=== PATIENT | female | born 1995 | race American Indian/Alaskan Native ===

== ENCOUNTER 2017-09-27 14:07 | Emergency (ER) | payer BC, MEDICAID ==
[2017-09-27 14:30] VITALS: BMI 32.8
--- NOTE | 2017-09-27 15:14 | US ---
PROCEDURE: OB Pelvic Ultrasound HISTORY: decrease mov COMPARISON: None available. FINDINGS: UTERUS: Single Live intrauterine gestation. BPD: 6.1 centimeter compatible with estimated gestational age of 24 weeks, 6 days. HC: 22.9 centimeter compatible with estimated gestational age of 24 weeks, 6 days. HC: 19.5 centimeter compatible with estimated gestational age of 20 weeks, 1 day. FL: 4.5 centimeter compatible with estimated gestational age of 24 weeks, 5 days. Presentation: Breech. Placenta: Anterior. age (Ultrasound estimated): 24 weeks, 5 days. Date of delivery (Ultrasound estimated) : 01/12/2018. Heart rate: 144 bpm. Julieta-gestational hemorrhage: None. CERVIX: Long and closed. No cervical abnormality seen. RIGHT OVARY: Measures cm. No mass. Normal flow. LEFT OVARY: Measures cm. No mass. Normal flow. FREE FLUID: None. OTHER FINDINGS: None. IMPRESSION: Single live intrauterine gestation with average ultrasound age of 24 weeks, 5 days. heart rate 144 beats per minute.
--- NOTE | 2017-09-27 15:25 | OBDCSUM ---
Datetime: 09/27/2017 15:16 Discharged to, Provider: Home Follow up at, Provider: dr mulligan office Disch Instr Activity: Normal activity Disch Instr Diet: Regular Discharge Time: 09/27/2017 15:16 Disch Referrals: None Discharge Comment, Provider: ok home ptl gove start pnv f/u dr mulligan on monday 10 am Discharge Diagnosis Prov Other: 24wee nst
--- NOTE | 2017-09-27 15:25 | OBHP ---
Datetime: 09/27/2017 15:22 IP Adm Impression: , intrauterine IP Admit Plan: Discharge home Admit Comment, IP Provider: at 24.5weeks came for jul . pt has no care. [facility] and found out she is preg and far [place]. obhx prim pmh den medc pnv all nkda psh de soch de soc cep/ant/wnl edc 01/18/18 a/p at 24+weeks dc home ptl gove start pnv f/u dr mulligan on monday 10 am Pelvic Type - PN: Adequate Extremities - PN: Normal Abdomen - PN: Normal Back - PN: Normal Breast - PN: Normal Lungs - PN: Normal Heart - PN: Normal Thyroid - PN: Normal Neurologic - PN: Normal HEENT - PN: Normal General - PN: Normal FHR - Baseline A Provider: 150 Contraction Comments Provider: none Comments, ACOG Physical Exam: gravid,non tender ext no edema,no calf IP Hx Assessment: No Care EGA AdmitDate IP: 26.0 Vital Signs Provider: Reviewed; Within Normal Limits IP Chief Complaint: Decreased movement NICHD Variability Prov Fetus A: Moderate 6-25bpm NICHD Accel Fetus A IP Provider: 10X10 FHR Category Provider Fetus A: Category I Genitourinary Exam: Normal DTRs - PN: Normal
== END 2017-09-27 15:27 | disposition home or self-care (01) ==
LOC: C.EROB 14:07
DX: O36.8120 Decreased fetal movements, second trimester, not applicable or unspecified (principal); Z3A.24 24 weeks gestation of pregnancy

== ENCOUNTER 2017-11-12 15:15 | Emergency (ER) | payer BC, OTHER ==
[2017-11-12 15:15] VITALS: BMI 32.8
[2017-11-12 15:37] VITALS: RESP 20
[2017-11-12] MEDS ORDERED: Lidocaine 1% Inj (20ml) INFIL STA (16:00)
[2017-11-12] MEDS ORDERED: Lidocaine 2% Inj (20ml) ONE (16:09)
--- NOTE | 2017-11-12 16:32 | C.PDOC ---
History Of Present Illness 22-year-old female, presents to the emergency department complaining of pain and swelling to right inner thigh for three days. Patient is 31-weeks . Denies abdominal pain, nausea/vomiting, vaginal bleeding/discharge, or any other associated symptoms. No other complaints at this time. Time Seen by Provider: 11/12/17 15:36 Chief Complaint (Nursing): Abnormal Skin Integrity History Per: Patient History/Exam Limitations: no limitations Past Medical History Reviewed: Historical Data, Nursing Documentation, Vital Signs Vital Signs: Last Vital Signs Temp 98.2 F 11/12/17 16:41 Pulse 86 11/12/17 16:41 Resp 20 11/12/17 16:41 BP 102/68 11/12/17 16:41 Pulse Ox 99 11/12/17 23:49 - Social History Hx Alcohol Use: No Hx Substance Use: No - Immunization History Hx Tetanus Toxoid Vaccination: No Hx Influenza Vaccination: No Hx Pneumococcal Vaccination: No Review Of Systems Constitutional: Negative for: Fever, Chills Respiratory: Negative for: Cough Gastrointestinal: Negative for: Vomiting, Abdominal Pain Genitourinary: Negative for: Dysuria, Frequency, Vaginal Discharge, Vaginal Bleeding Musculoskeletal: Negative for: Back Pain Neurological: Negative for: Headache Physical Exam - Physical Exam Appears: Non-toxic, No Acute Distress Skin: Warm, Dry, Other (right inner thigh with 3cm fluctuant abscess, tender to palpation) Head: Normacephalic Eye(s): bilateral: PERRL Nose: Normal Oral Mucosa: Moist Lips: Normal Appearing Neck: Normal ROM Chest: Symmetrical Cardiovascular: Rhythm Regular, No Murmur Respiratory: Normal Breath Sounds, No Accessory Muscle Use Gastrointestinal/Abdominal: Soft, No Tenderness, Other (Gravid) Extremity: Normal ROM, No Deformity, No Swelling Neurological/Psych: Oriented x3, Normal Speech ED Course And Treatment O2 Sat by Pulse Oximetry: 99 - Incision & Drainage Of Abscess Anesthesia: Lidocaine 2% (4ml) Procedure: Incised W/Scalpel Blade#: (11), Drained Pus (5ml ), Irrigated Cavity W/Saline, Probed To Break Up Loculations, Packed W/Gauze (Iodoform ), Cultures Obtained And Sent To Lab Medical Decision Making Medical Decision Makincm fluctuant abscess to right inner thigh. Local anesthesia achieved with approx. 4mL of 2% lidocaine without epinephrine. Area cleaned with 10% betadine solution. Incision made with sterile #11 blade scalpel. 5mL of yellow purulent discharge expressed. Sterile Iodoform packing placed in incision. Wound dressed with dry, sterile dressing. Pt tolerated well. Will prescribe Clindamycin. Patient advised to return to ED in 2 days for packing removal and wound check. Disposition Counseled Patient/Family Regarding: Diagnosis, Need For Followup, Rx Given - Disposition Referrals: [facility] at [facility] [Outside] Disposition: HOME/ ROUTINE Disposition Time: 16:30 Condition: STABLE Additional Instructions: RETURN TO EMERGENCY ROOM IN TWO DAYS FOR WOUND CHECK AND PACKING REMOVAL USE MEDICATIONS DIRECTED Prescriptions: Acetaminophen [Tylenol 325mg tab] 650 mg PO Q6 PRN #30 tab PRN Reason: pain/fever Clindamycin [Cleocin] 300 mg PO TID #21 cap Instructions: Skin Abscess Forms: [facility] (Anguillan) Print Language: ERITREAN - POA Present On Arrival: None - Clinical Impression Clinical Impression: Abscess of right thigh - Scribe Statement The provider has reviewed the documentation as recorded by the Scribe (Siria Matamoros) All medical record entries made by the Scribe were at my direction and personally dictated by me. I have reviewed the chart and agree that the record accurately reflects my personal performance of the history, physical exam, medical decision making, and the department course for this patient. I have also personally directed, reviewed, and agree with the discharge instructions and disposition.
[2017-11-12 16:42] VITALS: BP 102/68; PULSE 86; TEMP 98.2
[2017-11-12 19:45] VITALS: O2SAT 99
== END 2017-11-12 16:41 | disposition home or self-care (01) ==
LOC: C.ER 15:15
DX: L02.415 Cutaneous abscess of right lower limb (principal)

== ENCOUNTER 2017-11-14 14:59 | Emergency (ER) | payer BC, OTHER ==
[2017-11-14 14:59] VITALS: BMI 32.8
[2017-11-14 15:11] VITALS: BP 129/80; PULSE 103; TEMP 98.3; O2SAT 98
--- NOTE | 2017-11-14 15:43 | C.PDOC ---
History Of Present Illness 22 yo female come in for scheduled wound check after Right inner thigh abscess was I&D here in ED 2 days ago. Pt admits, " feels better", takes antibiotic currently as prescribed Otherwise, pt denies fever, chills, increase wound pain or discharges, redness. Ambulate to Ed for evaluation, not in any apparent distress. Time Seen by Provider: 11/14/17 15:31 Chief Complaint (Nursing): Wound Check History Per: Patient Past Medical History Reviewed: Historical Data, Nursing Documentation, Vital Signs Vital Signs: Last Vital Signs Temp 98.3 F 11/14/17 15:09 Pulse 103 H 11/14/17 15:09 Resp 20 11/14/17 15:09 BP 129/80 11/14/17 15:09 Pulse Ox 98 11/14/17 15:09 - Medical History PMH: No Chronic Diseases Family History: States: No Known Family Hx - Social History Hx Tobacco Use: No Hx Alcohol Use: No Hx Substance Use: No - Immunization History Hx Tetanus Toxoid Vaccination: No Hx Influenza Vaccination: No Hx Pneumococcal Vaccination: No Review Of Systems Except As Marked, All Systems Reviewed And Found Negative. Constitutional: Negative for: Fever, Chills Gastrointestinal: Negative for: Nausea, Vomiting, Abdominal Pain Musculoskeletal: Negative for: Neck Pain, Back Pain, Leg Pain Skin: Positive for: Lesions Physical Exam - Physical Exam Appears: Well, Non-toxic, No Acute Distress Skin: Normal Color, Warm, Other (Right inner thigh: small insicion with strerile packing noted in wound, no edema, no erythema, no proximal streaking, no flactulance. No significant wound discharges.) Eye(s): bilateral: PERRL Gastrointestinal/Abdominal: Soft, No Tenderness, No Distention, No Guarding Extremity: Normal ROM, No Tenderness, Capillary Refill (less than 2sec to Right foot), No Deformity, No Swelling Neurological/Psych: Oriented x3, Normal Speech, Normal Motor, Normal Sensation, Normal Reflexes ED Course And Treatment O2 Sat by Pulse Oximetry: 98 Progress Note: RLE: wound cleaned, packing removed. Wound irrigated with sterile water and bethadine. NO significant discharges noted. No edema, no proximal streaking, no flactulance. FAROM, no neurovascular deficits.Pt advised on course of ds. advised to cont. abx. Ref. to F/u with PMD, Surgery as need for further eval and tx. Disposition Counseled Patient/Family Regarding: Diagnosis, Need For Followup - Disposition Referrals: [facility] at [facility] [Outside] Disposition: HOME/ ROUTINE Disposition Time: 15:39 Condition: STABLE Additional Instructions: Keep wound clean, dry Continue antibiotic as initiated Follow up with PMD, Surgery in 2-3 days for re-evaluation as need Return to ED if any worsening or new changes. Instructions: Abscess Incision and Drainage (DC) - Clinical Impression Clinical Impression: Abscess of right thigh, Wound check, abscess
[2017-11-14 15:57] VITALS: RESP 18
== END 2017-11-14 15:57 | disposition home or self-care (01) ==
LOC: C.ER 14:59
DX: Z51.89 Encounter for other specified aftercare (principal); L02.415 Cutaneous abscess of right lower limb

== ENCOUNTER 2018-01-03 06:50 | Inpatient (IN) | payer BC, OTHER ==
[2018-01-03 07:14] VITALS: BMI 38.0
[2018-01-03] MEDS: Lactated Ringer's 1,000 ML IV SCH ×2 (07:30→15:53)
[2018-01-03 08:33] LABS: BASO % 0.1 % (0.0-2.0); EOS % 0.5 % (0.0-4.0); HEMOGLOBIN 9.4 g/dL (11.0-16.0); LYMPH # 1.7 K/uL (1.0-4.3); LYMPH % 21.8 % (20.0-40.0); MEAN CELL VOLUME 78.1 fL (81.0-99.0); MEAN CORPUSCULAR HEMOGLOBIN 25.7 pg (27.0-31.0); MEAN CORPUSCULAR HGB CONC 32.9 g/dL (33.0-37.0); MEAN PLATELET VOLUME 8.6 fL (7.2-11.7); MONO # 0.6 K/uL (0.0-0.8); MONO % 8.1 % (0.0-10.0); NEUT # 5.3 K/uL (1.8-7.0); NEUT % 69.5 % (50.0-75.0); RBC 3.66 Mil/uL (3.80-5.20); RED CELL DISTRIBUTION WIDTH 15.3 % (11.5-14.5); WHITE BLOOD COUNT 7.6 K/uL (4.8-10.8)
[2018-01-03 08:43] LABS: SQUAMOUS EPITHIAL 2 /hpf (0-5); URINE BILIRUBIN NEGATIVE (NEGATIVE); URINE BLOOD NEGATIVE (NEGATIVE); URINE CLARITY Hazy (Clear); URINE COLOR Amber (YELLOW); URINE GLUCOSE (UA) NORMAL (Normal); URINE LEUKOCYTE ESTERASE NEG Leu/uL (Negative); URINE PROTEIN 1+ mg/dL (NEGATIVE)
[2018-01-03 08:48] LABS: ALB/GLOB RATIO 0.9 (1.0-2.1); ALBUMIN 3.1 g/dL (3.5-5.0); ALT/SGPT 9 U/L (9-52); AST/SGOT 15 U/L (14-36); BLOOD UREA NITROGEN 9 mg/dL (7-17); CALCIUM 8.9 mg/dl (8.6-10.4); GFR AFRICAN-AMERICAN > 60; GFR NON-AFRICAN AMERICAN > 60
[2018-01-03] MEDS ORDERED: Nalbuphine 20 mg/ml Inj (1 ml) IVP PRN ×2 (15:00→15:15)
[2018-01-03] MEDS ORDERED: Oxytocin 30 UNIT 30 UNITS/500 ML BAG IV PRN (15:11)
[2018-01-03] MEDS ORDERED: Nalbuphine 20 mg/ml Inj (1 ml) ONE (15:21)
--- NOTE | 2018-01-03 15:34 | OBPN ---
Datetime: 01/03/2018 15:32 IP Procedures: Sterile Vag Exam Contraction Comments Provider: irrg FHR - Baseline A Provider: 130 IP Progress Note Comment: pt was examined at bed sie ve /-2 start pitocin anticipate NICHD Accel Fetus A IP Provider: 15X15 FHR Category Provider Fetus A: Category I NICHD Variability Prov Fetus A: Moderate 6-25bpm Dilatation, Provider: 2 Effacement, Provider: 70 Station, Provider: -2 Datetime: 09/27/2017 15:22 Vital Signs Provider: Reviewed; Within Normal Limits
[2018-01-03] MEDS ORDERED: Fentanyl/Bupivacaine HCl 250 ML EPI ONE (18:48)
--- NOTE | 2018-01-04 00:16 | OBPN ---
Datetime: 01/04/2018 00:13 IP Progress Impression: Normal progression of labor IP Procedures: Sterile Vag Exam Contraction Comments Provider: q1-4 FHR - Baseline A Provider: 130 IP Progress Note Comment: pt was examinedat bed side ve 8/100/0 cont pitocin anticipate NICHD Accel Fetus A IP Provider: 15X15 NICHD Variability Prov Fetus A: Moderate 6-25bpm Dilatation, Provider: 8 Effacement, Provider: 100 Station, Provider: 0
[2018-01-04] MEDS ORDERED: Oxycodone/Acetaminophen 5/325 mg Tab PO PRN ×2 (03:42)
[2018-01-04] MEDS ORDERED: Oxytocin 30 UNIT 30 UNITS/500 ML BAG IV SCH (03:45)
--- NOTE | 2018-01-04 04:18 | OBHP ---
Datetime: 01/04/2018 00:13 FHR - Baseline A Provider: 130 Contraction Comments Provider: q1-4 NICHD Variability Prov Fetus A: Moderate 6-25bpm NICHD Accel Fetus A IP Provider: 15X15 Dilatation, Provider: 8 Effacement, Provider: 100 Station, Provider: 0 Datetime: 01/03/2018 15:32 IP Adm Impression: Term, intrauterine IP Admit Plan: Admit to unit; Initiate labor induction protocol Admit Comment, IP Provider: Dr Alonzo private at v38.6weeks ccame with c/o ctxs started om/off, no vb, lof+fdm obhx primi pmh den med pnv all nkda psh de soch den ve /-3 a/p at 38.6wees in eaely labor admit to l_d npo/ivf labs pain ma cyotec cont domingo and efm anticipate Pelvic Type - PN: Adequate Extremities - PN: Normal Abdomen - PN: Normal Back - PN: Normal Breast - PN: Normal Lungs - PN: Normal Heart - PN: Normal Thyroid - PN: Normal Neurologic - PN: Normal HEENT - PN: Normal General - PN: Normal IP Hx Assessment: The History has been Reviewed and is Current EGA AdmitDate IP: 38.6 IP Chief Complaint: Uterine contractions FHR Category Provider Fetus A: Category I Genitourinary Exam: Normal DTRs - PN: Normal
--- NOTE | 2018-01-04 04:20 | OBADHP ---
Datetime: 01/04/2018 04:17 FHR - Baseline A Provider: 130 Vital Signs Provider: Reviewed; Within Normal Limits NICHD Variability Prov Fetus A: Moderate 6-25bpm Dilatation, Provider: 10 Effacement, Provider: 100 Station, Provider: 0 Datetime: 01/04/2018 00:13 Contraction Comments Provider: q1-4 NICHD Accel Fetus A IP Provider: 15X15 Datetime: 01/03/2018 15:32 Admit Comment, IP Provider: Dr Alonzo private at v38.6weeks ccame with c/o ctxs started om/off, no vb, lof+fdm obhx primi pmh den med pnv all nkda psh de soch den ve /-3 a/p at 38.6wees in eaely labor admit to l_d npo/ivf labs pain ma cyotec cont domingo and efm anticipate Pelvic Type - PN: Adequate Extremities - PN: Normal Abdomen - PN: Normal Back - PN: Normal Breast - PN: Normal Lungs - PN: Normal Heart - PN: Normal Thyroid - PN: Normal Neurologic - PN: Normal HEENT - PN: Normal General - PN: Normal IP Hx Assessment: The History has been Reviewed and is Current IP Chief Complaint: Uterine contractions FHR Category Provider Fetus A: Category I Genitourinary Exam: Normal DTRs - PN: Normal EGA AdmitDate IP: 38.6 IP Adm Impression: Term, intrauterine IP Admit Plan: Admit to unit; Initiate labor induction protocol Datetime: 09/27/2017 15:22 Comments, ACOG Physical Exam: gravid,non tender ext no edema,no calf
--- NOTE | 2018-01-04 04:20 | OBPN ---
Datetime: 01/04/2018 04:17 IP Progress Impression: Normal progression of labor IP Procedures: Sterile Vag Exam FHR - Baseline A Provider: 130 IP Progress Note Comment: pt was examimned at bed side ve fd/100/+1 will sat piushing soon anticipaye Vital Signs Provider: Reviewed; Within Normal Limits NICHD Variability Prov Fetus A: Moderate 6-25bpm Dilatation, Provider: 10 Effacement, Provider: 100 Station, Provider: 0
--- NOTE | 2018-01-04 04:47 | OBDS ---
DELIVERY PERSONNEL Nurse Fisheries Officer Certified: N/A Delivery Doctor: Kyung Alonzo MD Scrub Nurse: N/A Anesthesiologist: DR MALONEY Top Installer: SAME Resident: NKevin MATERNAL INFORMATION Delivery Anesthesia: Epidural Medications in Delivery: Pitocin Estimated Blood Loss (ml): 350 Maternal Complications: None Provider Comments: dr alonzo private vaccum applied for maternal exhauston and failure to desent. rml made before the vaccum. applied for 30 sec.baby came in dop. cord arround body and head.reduce d. peads present at the time of delovwery. 9/9 cord gas sent placente to pathology no com LABOR SUMMARY EDC: 01/11/2018 00:00 No. Babies in Womb: 1 Attempted: No Labor Anesthesia: Epidural LABOR INFORMATION Reason for Induction: Oligohydramnios Cervical Ripening Agents: Cytotec @ (Annotations: 50 mcg po) Oxytocin: Augmentation Group B Beta Strep: Negative (Annotations: 12/07/17) Steroids Given: None Reason Steroids Not Administered: Not Applicable MEMBRANES Membranes Rupture Method: Artificial Amniotic Fluid Color: Clear Amniotic Fluid Amount: Scant Amniotic Fluid Odor: Normal STAGES OF LABOR Stage 3 hrs: 0 Stage 3 min: 2 VAGINAL DELIVERY Episiotomy: Right Mediolateral Laceration Extension: N/A Laceration Type: None Laceration Repair Note: repairecwith 2 and 3 chromic Sponge Count Correct: Yes Sharps Count Correct: Yes BABY A INFORMATION Delivery Date/Time: 01/04/2018 04:26 Method of Delivery: Vaginal Born in Route : No : N/A Forceps: N/A Vacuum Extraction: Successful Shoulder Dystocia : No ASSISTED DELIVERY BABY A Indication for Assisted Delivery: arrest of desent/maternal exhaustion Catheter Prior to Procedure: Yes Station Vacuum/Forcep Apply: +3 Position Vacuum/Forcep Apply: direct occipito posterior Vacuum Number of Pulls: 1 Vacuum Number of PopOffs: 0 Vacuum Maximum Pressure Obtained: 50 Reduce Pressure btwn Ctx: Yes [employer] Guest Coordinator: Loud Mountain[place] pump Total Time Vacuum Applied: 30 Vacuum/Forceps Comment: vaccum applied for maternal exhauston and failure to desent. rml made before the vaccum. applied for 30 sec.baby came in dop. cord arround body and head.reduce d. peads present at the time of delovwery. 9/9 cord gas sent placente to pathology no com SHOULDER DYSTOCIA BABY A Delivery Date/Time: 01/04/2018 04:26 PRESENTATION/POSITION BABY A Presentation: Cephalic Cephalic Presentation: Vertex Vertex Position: direct OP Breech Presentation: N/A PLACENTA INFORMATION BABY A Placenta Delivery Time : 01/04/2018 04:28 Placenta Method of Delivery: Spontaneous Placenta Status: Delivered SCORES BABY A Heart Rate 1 min: >100 bpm Resp Effort 1 min: Good Cry Reflex Irritability 1 min: Cough or Sneeze or Pulls Away Muscle Tone 1 min: Active Motion Color 1 min: Body [place], Extremities Blue SCORE 1 MIN: 9 Heart Rate 5 min: >100 bpm Resp Effort 5 min: Good Cry Reflex Irritability 5 min: Cough or Sneeze or Pulls Away Muscle Tone 5 min: Active Motion Color 5 min: Body [place], Extremities Blue SCORE 5 MIN: 9 INFANT INFORMATION BABY A Gestational Age at Delivery: 39.0 Gestational Status: Term Outcome : Liveborn Infant Condition : Stable Sex: Male IDENTIFICATION/MEDS BABY A ID Band Number: [id number] ID Band Location: Left Leg; Left Arm Sensor Applied: Yes Sensor Number: [id number] Sensor Location : Cord Clamp WEIGHT/LENGTH BABY A Birthweight (gms): 3165 Weight (lb): 7 Infant Weight (oz): 0 Infant Length Inches: 20.00 Length cms: 50.8 CORD INFORMATION BABY A No. Cord Vessels: 3 Nuchal Cord : Around Neck x1, Loose Cord Blood Taken: Yes Infant Suction: None ASSESSMENT BABY A Complications: None Physical Findings at Delivery: Caput Su[place]edaneum Infant Respirations: Appears Normal [place] Machine Operator/ALS Called : No Care By: Transferred To: Remains with Mother
[2018-01-05 08:05] LABS: HEMOGLOBIN 8.9 g/dL (11.0-16.0); MEAN CELL VOLUME 77.8 fL (81.0-99.0); MEAN CORPUSCULAR HEMOGLOBIN 25.8 pg (27.0-31.0); MEAN CORPUSCULAR HGB CONC 33.2 g/dL (33.0-37.0); MEAN PLATELET VOLUME 8.4 fL (7.2-11.7); RBC 3.45 Mil/uL (3.80-5.20); RED CELL DISTRIBUTION WIDTH 15.4 % (11.5-14.5)
--- NOTE | 2018-01-05 17:10 | OBPPN ---
Datetime: 01/05/2018 17:06 PP Pain Prov: Within normal limits PP Nausea Prov: Denies PP Flatus Prov: Yes PP Abdomen/Uterus Prov: Normal PP Lochia Prov: Normal PP Extremities Prov: Normal PP Impression Prov: Normal progression PP Progress Note Prov: pt was seen at [facility] side, pain under conbtrol,no n/v, tolerating deit, . pt c ould not void after wheat trial plan start uicholine keflex wheat cont pp care dc tomorrow Vital Signs Provider PP: Reviewed; Within Normal Limits
[2018-01-06] MEDS: cefTRIAXone IV 1 gm in Dextros 50 ML IVPB SCH (16:01)
[2018-01-06] MEDS ORDERED: cefTRIAXone IV 1 gm in Dextros 50 ML IVPB SCH (22:00)
[2018-01-07 00:31] VITALS: RESP 20
[2018-01-07] MEDS: cefTRIAXone IV 1 gm in Dextros 50 ML IVPB SCH (04:29)
[2018-01-07 07:39] VITALS: BP 127/85; PULSE 79; TEMP 98.8; O2SAT 99
== END 2018-01-07 12:30 | disposition home or self-care (01) | DRG 775 ==
LOC: C.EROB 06:50 → C.4D 07:03 → C.4M 01-04 06:25
PROVIDERS: ADMIT Obstetrics & Gynecology; ATTEND Obstetrics & Gynecology
PROC: 10E0XZZ Delivery of Products of Conception, External Approach (ICD-10-PCS; principal; 2018-01-04)
PROC: 0W8NXZZ Division of Female Perineum, External Approach (ICD-10-PCS; 2018-01-04)
PROC: 3E0P7VZ Introduction of Hormone into Female Reproductive, Via Natural or Artificial Opening (ICD-10-PCS; 2018-01-04)
PROC: 10907ZC Drainage of Amniotic Fluid, Therapeutic from Products of Conception, Via Natural or Artificial Opening (ICD-10-PCS; 2018-01-04)
PROC: 10D07Z6 Extraction of Products of Conception, Vacuum, Via Natural or Artificial Opening (ICD-10-PCS; 2018-01-04)
DX: O41.03X0 Oligohydramnios, third trimester, not applicable or unspecified (principal); O32.4XX0 Maternal care for high head at term, not applicable or unspecified; O69.81X0 Labor and delivery complicated by cord around neck, without compression, not applicable or unspecified; O75.81 Maternal exhaustion complicating labor and delivery; Z3A.38 38 weeks gestation of pregnancy; Z37.0 Single live birth